=== PATIENT | female | born 1985 | race Caucasian/White ===

== ENCOUNTER 2020-01-10 08:20 | Inpatient (IN) | payer MEDICAID ==
[~2020-01-10] VITALS: Ht 172.7 cm; Wt 81.6 kg
[2020-01-10] MEDS ORDERED: DEXT 5%/LR + PITOCIN 20UNITS/L 1,000 ML IV SCH ×2 (08:57→16:48)
[2020-01-10] MEDS ORDERED: DEXT 5%/LACTATED RINGERS 1,000 ML IV SCH (08:57)
[2020-01-10] MEDS ORDERED: LIDOCAINE HCL 1% 20ML VIAL (Pyxis) INJ INFIL SCH (09:00)
[2020-01-10] MEDS ORDERED: METHYLERGONOVINE MALEATE 0.2 MG/ML IM PRN (09:00)
[2020-01-10] MEDS ORDERED: MISOPROSTOL 100MCG TABLET RC SCH (09:00)
[2020-01-10] MEDS ORDERED: CARBOPROST TROMETHAMINE 250 MCG/ML AMPUL IM PRN (09:00)
[2020-01-10] MEDS ORDERED: BUTORPHANOL TARTRATE 2 MG/ML VIAL IV PRN (09:00)
[2020-01-10] MEDS ORDERED: NALOXONE HCL 0.4 MG/ML 1ML VIAL IM PRN (09:00)
[2020-01-10] MEDS: LACTATED RINGERS 1,000 ML IV SCH ×3 (09:27→13:53)
[2020-01-10 09:41] LABS: BASOPHILS % 0.4 % (0.0-2.0); EOSINOPHILS % 0.4 % (0.0-5.0); HEMATOCRIT. 34.1 % (36.0-48.0); HEMOGLOBIN. 11.6 g/dL (12.0-16.0); LYMPHOCYTES % 18.5 % (20.0-50.0); MEAN CORPUSCULAR HEMOGLOBIN 31.1 pg (28.0-32.0); MEAN CORPUSCULAR VOLUME 91.8 fL (81.0-99.0); MEAN PLATELET VOLUME 9.1 fl (7.4-10.4); MONOCYTES % 4.5 % (2.0-8.0); NEUTROPHILS % 76.2 % (40.0-76.0); PLATELET 173 x1000/uL (130-400); RED BLOOD CELL COUNT 3.72 mill/uL (4.2-5.4)
[2020-01-10 09:46] LABS: CLARITY URINE CLEAR (CLEAR); COLOR URINE DK YELLOW (YELLOW); KETONES URINE TRACE (NEGATIVE); LEUKOCYTE ESTERASE URINE TRACE (NEGATIVE); NITRITE URINE NEGATIVE (NEGATIVE); OCCULT BLOOD URINE TRACE (NEGATIVE); PROTEIN URINE NEGATIVE (NEGATIVE); SPECIFIC GRAVITY URINE 1.026 (1.005-1.030); UROBILINOGEN URINE 0.2 E.U./dL (0.2-1.0)
[2020-01-10 09:52] LABS: PARTIAL THROMBOPLASTIN TIME 26.5 sec (23.4-31.0); PROTHROMBIN TIME 10.4 sec (9.6-11.0)
[2020-01-10 10:41] LABS: *AMPHETAMINES SCREEN URINE NEGATIVE (NEGATIVE); *BARBITURATES SCREEN URINE NEGATIVE (NEGATIVE); *BENZODIAZEPINES SCREEN URINE NEGATIVE (NEGATIVE); *COCAINE SCREEN URINE NEGATIVE (NEGATIVE)
[2020-01-10 10:42] LABS: CANNABINOID URINE SCREEN NEGATIVE (NEGATIVE); METHADONE URINE SCREEN NEGATIVE (NEGATIVE); OPIATES URINE SCREEN NEGATIVE (NEGATIVE); PHENCYCLIDINE URINE SCREEN NEGATIVE (NEGATIVE)
[2020-01-10 10:53] LABS: HEPATITIS B SURFACE ANTIGEN NEGATIVE
[2020-01-10] MEDS ORDERED: DIPHENHYDRAMINE 50MG/ML VIAL IV PRN (12:00)
[2020-01-10] MEDS ORDERED: METOCLOPRAMIDE HCL 10MG/2ML VIAL IV PRN (12:00)
[2020-01-10] MEDS ORDERED: ONDANSETRON HCL 4MG/2ML INJ IV PRN (12:00)
[2020-01-10] MEDS ORDERED: ROPIVACAINE HCL/PF EPIDURAL 200 ML EPI SCH (12:00)
[2020-01-10] MEDS ORDERED: GLYCERIN/WITCH HAZEL LEAF MEDICATED PAD TOP PRN (17:00)
[2020-01-10] MEDS ORDERED: ACETAMINOPHEN WITH CODEINE 300/30MG TABLET PO PRN (17:00)
[2020-01-10] MEDS ORDERED: BENZOCAINE/LANOLIN/ALOE VERA SPRAY TOP PRN (17:00)
[2020-01-10] MEDS ORDERED: IBUPROFEN 400MG TABLET PO PRN (17:00)
[2020-01-10] MEDS ORDERED: BISACODYL 10MG SUPP PR PRN (17:00)
[2020-01-10] MEDS ORDERED: DIPHENHYDRAMINE 25MG CAPSULE PO PRN (17:00)
[2020-01-10] MEDS ORDERED: HEMORRHOIDAL SUPP PR PRN (17:00)
[2020-01-10] MEDS ORDERED: LANOLIN OINT 7GM TUBE TOP PRN (17:00)
[2020-01-10 19:20] VITALS: BP 99/57
[2020-01-10 20:20] VITALS: BP 100/55
[2020-01-10] MEDS: IBUPROFEN 800MG TABLET PO PRN (20:24)
[2020-01-10] MEDS: DOCUSATE SODIUM 100MG CAPSULE PO SCH (22:06)
[2020-01-10] MEDS: SIMETHICONE 80MG TABLET CHEW PO SCH (22:06)
[2020-01-10] MEDS: MAGNESIUM/ALUMINUM HYDROXIDE/SIMETHICONE 30ML UDC PO SCH (22:07)
[2020-01-11 04:30] VITALS: BP 91/51
[2020-01-11] MEDS: IBUPROFEN 800MG TABLET PO PRN ×2 (04:31→14:59)
[2020-01-11 06:55] LABS: BASOPHILS % 0.2 % (0.0-2.0); EOSINOPHILS % 0.8 % (0.0-5.0); HEMATOCRIT. 30.7 % (36.0-48.0); HEMOGLOBIN. 10.5 g/dL (12.0-16.0); LYMPHOCYTES % 25.3 % (20.0-50.0); MEAN CORPUSCULAR HEMOGLOBIN 31.1 pg (28.0-32.0); MEAN CORPUSCULAR VOLUME 91.4 fL (81.0-99.0); MEAN PLATELET VOLUME 9.3 fl (7.4-10.4); MONOCYTES % 6.2 % (2.0-8.0); NEUTROPHILS % 67.5 % (40.0-76.0); PLATELET 159 x1000/uL (130-400); RED BLOOD CELL COUNT 3.36 mill/uL (4.2-5.4); RED CELL DISTRIBUTION WIDTH 13.6 % (11.6-14.6)
[2020-01-11 08:00] VITALS: BP 96/53
[2020-01-11] MEDS: SIMETHICONE 80MG TABLET CHEW PO SCH ×3 (08:53→21:39)
[2020-01-11] MEDS: MAGNESIUM/ALUMINUM HYDROXIDE/SIMETHICONE 30ML UDC PO SCH ×3 (08:53→21:41)
[2020-01-11] MEDS: PRENATAL VIT/FE FUMARATE/FA TABLET PO SCH (08:54)
[2020-01-11] MEDS: FERROUS SULFATE 325MG TABLET PO SCH ×3 (08:54→17:02)
[2020-01-11 16:00] VITALS: BP 95/58
[2020-01-11 20:00] VITALS: BP 101/62
[2020-01-11] MEDS: DOCUSATE SODIUM 100MG CAPSULE PO SCH (21:39)
[2020-01-12] VITALS: BP 105/65
[2020-01-12] MEDS: FERROUS SULFATE 325MG TABLET PO SCH (07:30)
[2020-01-12 08:00] VITALS: BP 91/55
[2020-01-12] MEDS: SIMETHICONE 80MG TABLET CHEW PO SCH (08:00)
[2020-01-12] MEDS: MAGNESIUM/ALUMINUM HYDROXIDE/SIMETHICONE 30ML UDC PO SCH (08:00)
[2020-01-12] MEDS: PRENATAL VIT/FE FUMARATE/FA TABLET PO SCH (08:52)
== END 2020-01-12 10:20 | disposition home or self-care (01) | DRG 560 ==
LOC: OBSVTOIN 08:20 → 8 EST LDRP 08:20 → 8EST 21:35
PROVIDERS: ADMIT Obstetrics & Gynecology; ATTEND Obstetrics & Gynecology
PROC: 10E0XZZ Delivery of Products of Conception, External Approach (ICD-10-PCS; principal; 2020-01-10)
PROC: 3E0R3BZ Introduction of Anesthetic Agent into Spinal Canal, Percutaneous Approach (ICD-10-PCS; 2020-01-10)
PROC: 00HU33Z Insertion of Infusion Device into Spinal Canal, Percutaneous Approach (ICD-10-PCS; 2020-01-10)
DX: O48.0 Post-term pregnancy (principal); Z37.0 Single live birth; Z3A.40 40 weeks gestation of pregnancy
CPT/HCPCS: 36415; 80305; 81003; 85025; 86592; 86703; 86762; 86850; 86900; 87340; 99281; J2590; J2795